=== PATIENT | female | born 1960 | race American Indian/Alaskan Native ===

== ENCOUNTER 2021-09-01 13:08 | Emergency (ER) | payer BC ==
--- NOTE | 2021-09-01 16:37 | Emergency Department Report ---
<ABELARDO AGUILAR - Last Filed: 09/01/21 16:32> - General Chief Complaint: Dyspnea/Respdistress Stated Complaint: COVID+/CP/COUGHING PUI?: Yes Time Seen by Provider: 09/01/21 16:16 Source: patient Mode of arrival: Ambulatory Limitations: No Limitations - History of Present Illness Initial Comments: 61-year-old -[place] female presents to the emergency room complaining of chest pain coughing sneezing runny nose nasal congestion headache body aches. She reported tested positive for COVID on August 27. She states that she has chest pain with cough and without cough. She denies any fever no chills no nausea no vomiting. She states she is fully vaccinated and booster. She reports she has been taken [id number] Coricidin Tylenol and was instructed to take ibuprofen for the body aches. She states she has been using her albuterol and Symbicort. MD Complaint: cough, sore throat, rhinorrhea, nasal congestion, sinus pain, other (Headache, myalgia, sneezing, chest pain) Onset/Timin - Related Data Previous Rx's Medication Instructions Recorded Last Taken Type methylPREDNISolone [Medrol 4MG 4 mg PO QDAY 6 Days #21 tab 09/01/21 Unknown Rx DOSEPAK (21 tabs)] Allergies Allergy/AdvReac Type Severity Reaction Status Date / Time No Known Allergies Allergy Verified 09/01/21 16:31 ED Past Medical Hx - Social History Smoking Status: Never Smoker Substance Use Type: None - Medications Home Medications: Home Medications Medication Instructions Recorded Confirmed Last Taken Type methylPREDNISolone [Medrol 4MG 4 mg PO QDAY 6 Days #21 tab 09/01/21 Unknown Rx DOSEPAK (21 tabs)] ED Physical Exam - General Limitations: No Limitations General appearance: alert, in no apparent distress - Head Head exam: Present: atraumatic, normocephalic - Eye Eye exam: Present: EOMI - Neck Neck exam: Present: normal inspection, full ROM - Respiratory Respiratory exam: Absent: respiratory distress - Cardiovascular Cardiovascular Exam: Present: regular rate - Back Exam Back exam: Present: full ROM - Neurological Exam Neurological exam: Present: alert, oriented X3, normal gait - Psychiatric Psychiatric exam: Present: normal affect, normal mood - Skin Skin exam: Present: warm, dry, intact, normal color. Absent: rash - Other Other exam information: Is limited as patient is positive for COVID. ED Disposition Is pt being admited?: No Does the pt Need Aspirin: No Condition: Stable Instructions: Incidental Abnormal Radiological Finding, Viral Respiratory Infection, [id number], Pulmonary Nodule, Prevent the Spread of COVID-19 if You Are Sick - [facility] Additional Instructions: X-ray shows no signs of pneumonia but it shows a incidental finding of a pulmonary nodule left upper hilar of the lung. Recommend to follow-up with your primary care provider or foster care social worker for further studies. You are being placed on steroids to help with your breathing. Continue to quarantine and get rechecked for COVID before going back to work. Tylenol or ibuprofen as needed for body aches any fevers. Be sure to increase your fluid intake. Prescriptions: methylPREDNISolone [Medrol 4MG DOSEPAK (21 tabs)] 4 mg PO QDAY 6 Days #21 tab Referrals: GALEN YUNG RN [Primary Care Provider] - 3-5 Days LATRICIA BONNER MD [Staff Physician] - 3-5 Days <LYNDON CAICEDO - Last Filed: 09/01/21 18:51> ED Review of Systems ROS: Stated complaint: COVID+/CP/COUGHING Other details as noted in HPI ED Course Vital Signs 09/01/21 09/01/21 13:56 16:28 Temperature 97.8 F 99.8 F H Pulse Rate 68 79 Respiratory 18 18 Rate Blood Pressure 144/83 135/87 [Right] O2 Sat by Pulse 100 96 Oximetry Critical care attestation.: If time is entered above; I have spent that time in minutes in the direct care of this critically ill patient, excluding procedure time. ED Disposition Time of Disposition: 18:43
--- NOTE | 2021-09-01 17:29 | XRay Report ---
CHEST 1 VIEW INDICATION: covid positive chest pain. COMPARISON: None. FINDINGS: Support devices: None. Heart: Normal. Lungs/Pleura: There is a somewhat rounded 1.8 cm density projecting over the right mid lung. Lung fie lds are otherwise clear. No pleural abnormality. IMPRESSION: 1. 1.8 cm nodular density projecting over the perihilar right mid lung. No prior studies are availabl e. Follow-up PA and lateral would be useful to confirm that this is not artifact or outside the patie nt. If this persists, CT would be useful to better characterize this. Signer Name: Cordell Rosenbaum MD Signed: 09/01/2021 5:25 PM Workstation Name: [id number]
[2021-09-01] MEDS ORDERED: IBUPROFEN 600 MG TAB PO ONE (17:32)
[2021-09-01] MEDS ORDERED: dexAMETHasone 4 MG/ML VIAL IM ONE (17:36)
[2021-09-01 19:27] VITALS: BP 124/78
== END 2021-09-01 19:25 | disposition home or self-care (01) ==
LOC: ED 13:08
DX: U07.1 COVID-19 (principal); R07.9 Chest pain, unspecified; R05.9 Cough, unspecified
CPT/HCPCS: 71045; 87116; 87430; 96372; 99284; J1100